=== PATIENT | male | born 1990 | race Caucasian/White ===

== ENCOUNTER 2016-06-20 00:07 | Emergency (ER) | payer OTHER ==
[2016-06-20] MEDS ORDERED: HYDROCODONE/ACETAMINOPHEN 5/325MG TABLET ONE (01:47)
[2016-06-20] MEDS ORDERED: CEPHALEXIN 500 MG CAPSULE ONE (01:48)
[2016-06-20] MEDS ORDERED: SULFAMETHOXAZOLE 800 MG/TRIMETHOPRIM 160 MG TABLET ONE (01:48)
== END 2016-06-20 02:29 | disposition home or self-care (01) ==
LOC: ED 00:07
DX: L03.031 Cellulitis of right toe (principal); B35.3 Tinea pedis; F17.210 Nicotine dependence, cigarettes, uncomplicated
CPT/HCPCS: 99283 ×2; A9270 ×3